=== PATIENT | male | born 1980 | race Caucasian/White ===

== ENCOUNTER 2021-06-12 10:02 | Emergency (ER) | payer MEDICAID ==
[~2021-06-12] VITALS: Ht 180.3 cm; Wt 113.4 kg
[2021-06-12 10:06] VITALS: BP 148/88
--- NOTE | 2021-06-12 10:16 | NUR ---
PT C/O LEFT UPPER BACK PAIN WITH NUMBNESS TO LEFT ARM X3 DAYS. PT STATES WOKE UP 3 DAYS AGO WITH A STIFF NECK AND THEN PAIN MOVED TO BACK
--- NOTE | 2021-06-12 10:23 | NUR ---
The patient's care was reviewed and supervised by Tammy Thompson RN.
[2021-06-12 11:01] LABS: BASOPHILS # (AUTO) 0.3 K/uL (0.00-0.22); BASOPHILS % (AUTO) 3.6 % (0.0-2.0); EOSINOPHILS # (AUTO) 0.1 K/uL (0-0.4); EOSINOPHILS % (AUTO) 0.8 % (0.0-4.0); HEMATOCRIT 42.8 % (36-52); HEMOGLOBIN 14.9 g/dL (12.0-18.0); LYMPHOCYTES # (AUTO) 2.4 K/uL (2.0-11.5); LYMPHOCYTES % (AUTO) 32.9 % (20.5-51.1); MEAN CORPUSCULAR HEMOGLOBIN 30 pg (27-31); MEAN CORPUSCULAR HGB CONC 35 g/dL (33-37); MEAN CORPUSCULAR VOLUME 86.5 fL (80-94); MONOCYTES # (AUTO) 0.4 K/uL (0.8-1.0); MONOCYTES % (AUTO) 5.6 % (1.7-9.3); NEUTROPHILS # (AUTO) 4.2 K/uL (1.8-7.7); NEUTROPHILS % (AUTO) 57.1 % (42.2-75.2); PLATELET COUNT (AUTO) 343 K/uL (140-450); RED BLOOD CELL COUNT(AUTO) 4.95 MIL/uL (4.20-6.10); RED CELL DISTRIBUTION WIDTH 12.7 % (11.6-13.7); WHITE BLOOD COUNT (AUTO) 7.4 K/uL (4.8-10.8)
--- NOTE | 2021-06-12 12:06 | NUR ---
PATIENT STABLE IN BED, ALL NEEDS MET
[2021-06-12 14:02] LABS: ALBUMIN 4.3 g/dL (3.4-5.0); ANION GAP 18.9 (8-16); CARBON DIOXIDE 26.3 mmol/L (21-32); CREATININE 0.9 mg/dL (0.6-1.3); POTASSIUM 4.2 mmol/L (3.5-5.1); TOTAL BILIRUBIN 0.5 mg/dL (0.0-1.0)
--- NOTE | 2021-06-12 14:09 | NUR ---
PT BACK FROM CT
[2021-06-12] MEDS ORDERED: CAPS1ADH5 TP (15:11)
[2021-06-12] MEDS ORDERED: NAPR-54 PO (15:11)
[2021-06-12] MEDS ORDERED: CYCL-711 PO (15:16)
[2021-06-12 15:25] VITALS: BP 122/70
--- NOTE | 2021-06-12 15:26 | NUR ---
Patient discharged with v/s stable. Written and verbal after care instructions given and explained. Patient verbalized understanding. Ambulatory with steady gait. All questions addressed prior to discharge. Advised to follow up with PMD.
== END 2021-06-12 15:26 | disposition home or self-care (01) ==
LOC: MED 10:02
DX: M62.838 Other muscle spasm (principal); M43.6 Torticollis; R20.0 Anesthesia of skin
CPT/HCPCS: 36415; 70490; 71045; 71275; 80053; 81002; 84484; 85025; 93005; 99285; Q9967